=== PATIENT | female | born 1930 | race Caucasian/White ===

== ENCOUNTER 2016-12-08 18:35 | Inpatient (IN) | payer MEDICARE, OTHER ==
[2016-12-08 19:10] LABS: BASOPHIL % 0.3 % (0.0-0.4); Eosinophil % 1.9 % (0.00-5.0); Granulocytes % 66.4 % (36.0-66.0); Lymphocytes % 23.4 % (24.0-44.0); Mean Cell Volume 92.3 fl (78-100); Mean Platelet Volume 9.3 fl (6-9.5); Platelet Count 272 K/mm3 (150-450); Red Blood Count 4.39 M/mm3 (4.1-5.4); White Blood Count 7.5 K/mm3 (4.0-10.5)
--- NOTE | 2016-12-08 19:10 | ERPHSYRPT ---
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 REPORTEDLY PT HAD A CVA LAST YEAR FOR WHICH SHE HAD A 5 DAYS HOSPITAL STAY. Allergies/Adverse Reactions: ampicillin [Ampicillin] Allergy (Severe, Verified 12/08/16 18:51) Swelling Home Medications: Aspirin EC 81 mg [Ecotrin 81 mg] 81 mg PO DAILY 12/29/12 [History] Carvedilol 3.125 mg [Coreg 3.125 MG] 3.125 mg PO DAILY 12/29/12 [History] Apixaban [Eliquis] 2.5 mg PO BID 12/08/16 [History] Digoxin 0.125 mg Tablet [Lanoxin 0.125MG TABLET] 0.125 mg PO DAILY [History] Furosemide 40 mg [Lasix 40 MG] 40 mg PO DAILY 12/08/16 [History] Potassium Chloride 8 meq PO DAILY 12/08/16 [History] Sacubitril/Valsartan [Entresto 24 mg-26 mg Tablet] 1 each PO BID 12/08/16 [ History] Hx Tetanus, Diphtheria Vaccination/Date Given: No Hx Influenza Vaccination/Date Given: Yes (2011) Hx Pneumococcal Vaccination/Date Given: Yes (2011) Immunizations Up to Date: Yes - Review of Systems Constitutional: No Fever Ears, Nose, & Throat: Other (H.O.H.) Respiratory: No Dyspnea Cardiac: No Chest Pain Abdominal/Gastrointestinal: No Vomiting Neurological: Gait Changes (DIFFICULTY WITH AMBULATION), Speech Changes ( DIFFICULT ARTICULATION), Other (CONFUSION) Endocrine: No Excessive Sweating All Other Systems: Reviewed and Negative - Past Medical History Pertinent Past Medical History: Yes Neurological History: Stroke ENT History: No Pertinent History Cardiac History: No Pertinent History Respiratory History: COPD Endocrine Medical History: No Pertinent History Musculoskeletal History: No Pertinent History GI Medical History: No Pertinent History History: No Pertinent History Psycho-Social History: No Pertinent History Female Reproductive Disorders: No Pertinent History Other Medical History: shingles - Past Surgical History Past Surgical History: Yes Neuro Surgical History: No Pertinent History Cardiac: No Pertinent History Respiratory: No Pertinent History Gastrointestinal: No Pertinent History Genitourinary: No Pertinent History Musculoskeletal: No Pertinent History Female Surgical History: No Pertinent History Other Surgical History: tonsilectomy - Social History Smoking Status: Current every day smoker How long have you smoked: 60 yrs Exposure to second hand smoke: Yes Drug Use: none Patient Lives Alone: No - Female History Hx Now: No - Nursing Vital Signs Nursing Vital Signs: Initial Vital Signs Temperature 98.9 F 12/08/16 18:37 Pulse Rate 100 H 12/08/16 18:37 Respiratory Rate 18 12/08/16 18:37 Blood Pressure 145/64 12/08/16 18:37 O2 Sat by Pulse Oximetry 96 12/08/16 18:37 Pain Scale Pain Intensity 0 - Physical Exam General Appearance: alert Eye Exam: PERRL/EOMI Ears, Nose, Throat Exam: TMs normal, pharynx normal, dry mucous membranes, other (H.O.H.) Neck Exam: normal inspection Respiratory Exam: lungs clear Cardiovascular Exam: irregular Gastrointestinal/Abdomen Exam: soft, normal bowel sounds, No tenderness Back Exam: other (LEVOSCOLIOSIS; KYPHOSIS.) Extremity Exam: normal inspection, normal range of motion, No pedal edema Neurologic Exam: alert, cooperative, sensation nml, No oriented x 3 (ORIENTED TO PERSON ONLY.), No motor deficits, No slurred speech Skin Exam: warm, dry SpO2 Interpretation: normal SpO2: 96 Oxygen Delivery: Room Air - Course Nursing assessment & vital signs reviewed: Yes EKG Interpreted by Me: RATE (94), A-fib, Non-specific ST Changes, Other ( INDETERMINATE AXIS; INTRAVENTRICULAR CONDUCTION DELAY.) - Radiology Exams Chest X-ray Interpretation: Interpreted by me, No Pneumonia - CT Exams Head CT Interpretation: Discussed w/radiologist (COMPARED TO 05/06/15: NEW 3.5 X 4.0 CM FOCUS OF CORTICAL/SUBCORTICAL HYPOATTENUATION LEFT PARIETAL LOBE PROBABLE ACUTE ISCHEMIA. NEW SUBACUTE TO CHRONIC APPEARING RIGHT CEREBELLAR ISCHEMIA. NO BLEED OR MASS EFFECT. STABLE ATROPHY & DEGENERATIVE MICROISCHEMIA.) Ordered Tests: Active Orders 24 hr Category Date Time Status Chain Saw Operator STAT Care 12/08/16 19:04 Active EKG-ER Only STAT Care 12/08/16 19:02 Active IV Insertion STAT Care 12/08/16 18:55 Active Oxygen-ED Only NASAL CANNULA 2 lpm Care 12/08/16 19:02 Active Pulse Oximetry (ED) STAT Care 12/08/16 19:02 Active CHEST 1 VIEW (PORTABLE) Stat Exams 12/08/16 19:03 Taken HEAD WITHOUT CONTRAST [CT] Stat Exams 12/08/16 19:04 Taken CBC W DIFF Stat Lab 12/08/16 19:00 Completed CMP Stat Lab 12/08/16 19:00 Completed DIGOXIN Urgent Lab 12/08/16 19:00 Completed MAGNESIUM Stat Lab 12/08/16 19:00 Completed TROPONIN Q3H Lab 12/08/16 19:00 Completed TROPONIN Q3H Lab 12/08/16 22:15 Ordered TROPONIN Q3H Lab 12/09/16 01:15 Ordered TROPONIN Q3H Lab 12/09/16 04:15 Ordered TROPONIN Q3H Lab 12/09/16 07:15 Ordered UA W/ MICROSCOPIC Stat Lab 12/08/16 19:35 Completed Medication Summary Generic Name Dose Route Start Last Admin Trade Name Freq PRN Reason Stop Dose Admin Sodium Chloride 1,000 mls @ 100 mls/hr 12/08/16 19:15 12/08/16 19:38 Sodium Chloride 0.9% 1000 Ml IV 01/07/17 19:14 100 mls/hr .Q10H SHANTAL Administration Sodium Chloride 1,000 mls @ 999 mls/hr 12/08/16 19:36 12/08/16 19:40 Sodium Chloride 0.9% 1000 Ml IV 12/08/16 20:36 999 mls/hr .Q1H1M STA Administration Lab/Rad Data: Laboratory Result Diagrams 12/08/16 19:00 12/08/16 19:00 Laboratory Results 12/08/16 12/08/16 12/08/16 Range/Units 19:35 19:00 19:00 WBC (4.0-10.5) K/mm3 RBC (4.1-5.4) M/mm3 Hgb (12.0-16.0) gm/dl Hct (35-47) % MCV (78-100) fl MCH (26-32) pg MCHC (32-36) g/dl RDW (11.5-14.0) % Plt Count (150-450) K/mm3 MPV (6-9.5) fl Gran % (36.0-66.0) % Lymphocytes % (24.0-44.0) % Monocytes % (0.0-12.0) % Eosinophils % (0.00-5.0) % Basophils % (0.0-0.4) % Basophils # (0-0.4) Sodium 134 L (136-145) mEq/L Potassium 4.5 (3.5-5.1) mEq/L Chloride 99 (98-107) mEq/L Carbon Dioxide 27.7 (21-32) mEq/L Anion Gap 12.1 (5-15) MEQ/L BUN 25 H (9-20) mg/dL Creatinine 0.85 (0.55-1.30) mg/dl Estimated GFR > 60 ML/MIN Glucose 140 H (70-110) MG/DL Calcium 10.5 H (8.5-10.1) mg/dL Magnesium 1.9 (1.8-2.4) mg/dL Total Bilirubin 0.60 (0.2-1.0) mg/dL AST 39 H (15-37) U/L ALT 30 (12-78) U/L Alkaline Phosphatase 90 (46-116) U/L Troponin I < 0.017 (0.000-0.056) ng/ml Serum Total Protein 6.9 (6.4-8.2) gm/dL Albumin 3.8 (3.4-5.0) g/dL Ur Collection Type CLEAN CATCH Urine Color YELLOW (YELLOW) Urine Appearance CLEAR (CLEAR) Urine pH 6.5 (5-6) Ur Specific [place] 1.015 (1.005-1.025) Urine Protein NEGATIVE (Negative) Urine Ketones NEGATIVE (NEGATIVE) Urine Blood 250 (0-5) Yoan/ul Urine Nitrite NEGATIVE (NEGATIVE) Urine Bilirubin NEGATIVE (NEGATIVE) Urine Urobilinogen NORMAL (0-1) mg/dL Ur Leukocyte Esterase NEGATIVE (NEGATIVE) Urine Microscopic RBC 2-5 (0-2) /HPF Urine Microscopic WBC 0-2 (0-5) /HPF Ur Epithelial Cells FEW (FEW) /HPF Urine Bacteria RARE (NEGATIVE) /HPF Urine Culture Reflexed NO (NO) Urine Glucose NEGATIVE (NEGATIVE) mg/dL Digoxin 0.51 (0.5-1.5) ng/ml Specimen Received 12/08/16 1935 12/08/16 Range/Units 19:00 WBC 7.5 (4.0-10.5) K/mm3 RBC 4.39 (4.1-5.4) M/mm3 Hgb 13.6 (12.0-16.0) gm/dl Hct 40.5 (35-47) % MCV 92.3 (78-100) fl MCH 31.0 (26-32) pg MCHC 33.6 (32-36) g/dl RDW 15.0 H (11.5-14.0) % Plt Count 272 (150-450) K/mm3 MPV 9.3 (6-9.5) fl Gran % 66.4 H (36.0-66.0) % Lymphocytes % 23.4 L (24.0-44.0) % Monocytes % 8.0 (0.0-12.0) % Eosinophils % 1.9 (0.00-5.0) % Basophils % 0.3 (0.0-0.4) % Basophils # 0.02 (0-0.4) Sodium (136-145) mEq/L Potassium (3.5-5.1) mEq/L Chloride (98-107) mEq/L Carbon Dioxide (21-32) mEq/L Anion Gap (5-15) MEQ/L BUN (9-20) mg/dL Creatinine (0.55-1.30) mg/dl Estimated GFR ML/MIN Glucose (70-110) MG/DL Calcium (8.5-10.1) mg/dL Magnesium (1.8-2.4) mg/dL Total Bilirubin (0.2-1.0) mg/dL AST (15-37) U/L ALT (12-78) U/L Alkaline Phosphatase (46-116) U/L Troponin I (0.000-0.056) ng/ml Serum Total Protein (6.4-8.2) gm/dL Albumin (3.4-5.0) g/dL Ur Collection Type Urine Color (YELLOW) Urine Appearance (CLEAR) Urine pH (5-6) Ur Specific [place] (1.005-1.025) Urine Protein (Negative) Urine Ketones (NEGATIVE) Urine Blood (0-5) Yoan/ul Urine Nitrite (NEGATIVE) Urine Bilirubin (NEGATIVE) Urine Urobilinogen (0-1) mg/dL Ur Leukocyte Esterase (NEGATIVE) Urine Microscopic RBC (0-2) /HPF Urine Microscopic WBC (0-5) /HPF Ur Epithelial Cells (FEW) /HPF Urine Bacteria (NEGATIVE) /HPF Urine Culture Reflexed (NO) Urine Glucose (NEGATIVE) mg/dL Digoxin (0.5-1.5) ng/ml Specimen Received - Progress Discussed with : Dave ( - 2005) - Departure Time of Disposition: 20:07 Departure Disposition: Observation Clinical Impression: CVA, MILD DEHYDRATION, COPD Condition: Stable Critical Care Time: No Referrals: JANELL GUILLEN [Primary Care Provider] -
[2016-12-08] MEDS ORDERED: Sodium Chloride 0.9% 1000 ML 1,000 ML IV SCH (19:15)
[2016-12-08 19:27] LABS: ALBUMIN 3.8 g/dL (3.4-5.0); ALKALINE PHOSPHATASE 90 U/L (46-116); ANION GAP 12.1 MEQ/L (5-15); BLOOD UREA NITROGEN 25 mg/dL (9-20); CHLORIDE 99 mEq/L (98-107); Carbon Dioxide 27.7 mEq/L (21-32); Glucose 140 MG/DL (70-110); MAGNESIUM 1.9 mg/dL (1.8-2.4); Potassium 4.5 mEq/L (3.5-5.1); SGOT/AST 39 U/L (15-37); SGPT/ALT 30 U/L (12-78); SODIUM 134 mEq/L (136-145); Total Protein 6.9 gm/dL (6.4-8.2)
[2016-12-08] MEDS ORDERED: Sodium Chloride 0.9% 1000 ML 1,000 ML ONE (19:32)
[2016-12-08] MEDS ORDERED: Sodium Chloride 0.9% 1000 ML 1,000 ML IV STA (19:36)
[2016-12-08 19:37] LABS: TROPONIN < 0.017 ng/ml (0.000-0.056)
[2016-12-08 19:55] LABS: Collection Type CLEAN CATCH; Glucose NEGATIVE (NEGATIVE); Leukocyte Esterase NEGATIVE (NEGATIVE)
[2016-12-08 19:56] LABS: ADD URINE CULTURE? NO (NO); Bacteria RARE /HPF (NEGATIVE); Bilirubin NEGATIVE (NEGATIVE); Blood 250 Ery/ul (0-5); COMPLETE URINE MICROSCOPIC? YES; Epithelial Cells FEW /HPF (FEW); WBC 0-2 /HPF (0-5)
[2016-12-08] MEDS ORDERED: Zofran 4 MG/2 ML VIAL IV PRN (21:14)
[2016-12-08] MEDS ORDERED: Phenergan 25 MG INJ IV PRN (21:14)
[2016-12-08] MEDS ORDERED: TYLENOL 325 MG PO PRN (21:14)
[2016-12-08] MEDS: Sodium Chloride 0.9% 1000 ML 1,000 ML IV SCH (22:16)
[2016-12-09 04:41] LABS: BASOPHIL % 0.4 % (0.0-0.4); Eosinophil % 2.6 % (0.00-5.0); Granulocytes % 56.6 % (36.0-66.0); Lymphocytes % 31.9 % (24.0-44.0); Mean Cell Volume 93.1 fl (78-100); Mean Corpuscular Hemoglobin 30.9 pg (26-32); Mean Platelet Volume 8.7 fl (6-9.5); Monocytes % 8.5 % (0.0-12.0); Platelet Count 205 K/mm3 (150-450); Red Blood Count 3.91 M/mm3 (4.1-5.4)
[2016-12-09 05:15] LABS: ALKALINE PHOSPHATASE 74 U/L (46-116); ANION GAP 10.2 MEQ/L (5-15); CHLORIDE 105 mEq/L (98-107); Carbon Dioxide 26.8 mEq/L (21-32); Glucose 82 MG/DL (70-110); Potassium 3.8 mEq/L (3.5-5.1); SGOT/AST 40 U/L (15-37); SGPT/ALT 25 U/L (12-78); SODIUM 138 mEq/L (136-145); Total Protein 5.5 gm/dL (6.4-8.2)
[2016-12-09 06:15] LABS: BLOOD UREA NITROGEN 24 mg/dL (9-20)
--- NOTE | 2016-12-09 08:39 | XRAY ---
Indication: Confusion. Multiple contiguous axial images obtained through the head without contrast. Comparison: May 06, 2015. In the left posterior parietal lobe, there is now a 3.5 x 4.0 cm wedge-shaped focus of cortical/subcortical hypoattenuation favoring acute ischemia. There is also new small focus of subacute to chronic appearing right cerebellar infarct. No acute intracranial hemorrhage, mass effect, or hydrocephalus. Elsewhere there is stable global atrophy and moderate periventricular degenerative micro-ischemia bilaterally. Bony calvarium intact. Visualized paranasal sinuses and mastoid air cells are clear. Impression: 1. New left parietal lobe evolving ischemia. Also new finding for subacute to chronic appearing right cerebellar infarct. No acute hemorrhage or mass effect. 2. Stable atrophy and degenerative micro-ischemia. CT DI 61.05
--- NOTE | 2016-12-09 08:45 | XRAY ---
Indication: Confusion. Comparison: December 29, 2012. Portable chest remains hyperinflated and clear. Heart is borderline enlarged. Vascularity normal. Bony thorax intact again with mild osteopenia, degenerative changes, and double curvature scoliosis. Impression: Stable nonacute hyperinflated chest with chronic features.
[2016-12-09] MEDS ORDERED: MEDICATION INTERVENTION MC PRN (08:53)
[2016-12-09] MEDS ORDERED: FLUZONE HIGH-DOSE 2017-18 SYR IM ONE (10:00)
[2016-12-09] MEDS ORDERED: NON-FORMULARY ITEM (Potassium Chloride [Potassium Chloride] 8 MEQ) PO SCH (10:00)
[2016-12-09] MEDS ORDERED: Lanoxin 0.125MG TABLET PO SCH (10:00)
[2016-12-09] MEDS ORDERED: NON-FORMULARY ITEM (Sacubitril/Valsartan [Entresto 24 Mg-26 Mg Tablet] 1 EACH) PO SCH (10:00)
[2016-12-09] MEDS: Sodium Chloride 0.9% 1000 ML 1,000 ML IV SCH (10:25)
[2016-12-09] MEDS: ELIQUIS PO SCH ×2 (10:25→21:30)
[2016-12-09] MEDS: Klor Con 10 MEQ PO SCH (10:26)
[2016-12-09] MEDS: Lasix 40 MG PO SCH (10:27)
[2016-12-09] MEDS: ECOTRIN 81 MG PO SCH (10:28)
[2016-12-09] MEDS: Coreg 3.125 MG PO SCH (10:28)
--- NOTE | 2016-12-09 11:15 | PCM.HP ---
History of Present Illness - Chief Complaint Chief Complaint: CVA, APHASIA History of Present Illness: is a 86 year old female pt of mine from [facility] who was brought to ER for disorientation. She was found on CT to have a new appearing CVA, no bleed, no mass effect. she is in the room alone and is still disoriented; knows she has had a CVA, but cannot tell her last name, the location, or the date. She is able to ambulate quite well. - Review of Systems All Other Systems: Unable due to condition (disoriented, no family member present) Medications & Allergies Home Medications: Home Medication List Aspirin EC 81 mg [Ecotrin 81 mg] 81 mg PO DAILY 12/29/12 [History Confirmed 12/08/16] Carvedilol 3.125 mg [Coreg 3.125 MG] 3.125 mg PO DAILY 12/29/12 [History Confirmed 12/08/16] Apixaban [Eliquis] 2.5 mg PO BID 12/08/16 [History Confirmed 12/08/16] Digoxin 0.125 mg Tablet [Lanoxin 0.125MG TABLET] 0.125 mg PO DAILY [History Confirmed 12/08/16] Furosemide 40 mg [Lasix 40 MG] 40 mg PO DAILY 12/08/16 [History Confirmed 12/08/16] Potassium Chloride 8 meq PO DAILY 12/08/16 [History Confirmed 12/08/16] Sacubitril/Valsartan [Entresto 24 mg-26 mg Tablet] 1 each PO BID 12/08/16 [ History Confirmed 12/08/16] Allergies/Adverse Reactions: Allergies Allergy/AdvReac Type Severity Reaction Status Date / Time ampicillin [Ampicillin] Allergy Severe Swelling Verified 12/08/16 18:51 - Past Medical History Past Medical History: Yes Neurological History: Stroke ENT History: No Pertinent History Cardiac History: No Pertinent History Respiratory History: COPD Endocrine Medical History: No Pertinent History Musculoskelatal History: No Pertinent History GI Medical History: No Pertinent History History: No Pertinent History Pyscho-Social History: No Pertinent History Reproductive Disorders: No Pertinent History Comment: shingles - Female History Are you now?: No - Past Surgical History Past Surgical History: Yes Neuro Surgical History: No Pertinent History Cardiac History: No Pertinent History Respiratory Surgery: No Pertinent History GI Surgical History: No Pertinent History Genitourinary Surgical Hx: No Pertinent History Musculskeletal Surgical Hx: No Pertinent History Female Surgical History: No Pertinent History Other Surgical History: tonsilectomy, Corneal transplant date unkown - Social History Smoking Status: Former smoker How long have you smoked: 60 yrs Exposure to second hand smoke: Yes Alcohol: None Drug Use: none - Physical Exam Vital Signs: Vital Signs - 24 hr Temp Pulse Resp BP Pulse Ox 12/09/16 10:27 72 12/09/16 08:00 20 12/09/16 07:00 97.9 F 72 20 118/58 94 L 12/09/16 04:00 98.2 F 70 18 119/62 91 L 12/09/16 00:00 98.1 F 14 12/08/16 21:27 99.2 F 88 16 133/65 95 12/08/16 20:07 96 12/08/16 19:52 79 22 112/56 95 12/08/16 19:24 94 L 12/08/16 18:37 98.9 F 100 H 18 145/64 96 General Appearance: no apparent distress, alert, other (extremely RED DEVIL) Neurologic Exam: cooperative, scrap 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-XII nml as tested (aside from very decreased CN VIII), disoriented (pleasant) Eye Exam: eyes nml inspection, other (small pupils, sluggishly reactive) Ears, Nose, Throat Exam: pharynx normal, moist mucous membranes, No pharyngeal erythema Neck Exam: normal inspection, non-tender, supple, No lymphadenopathy Respiratory Exam: normal breath sounds, lungs clear, No crackles/rales, No rhonchi, No wheezing Cardiovascular Exam: normal heart sounds, irregular, No murmur Gastrointestinal/Abdomen Exam: soft, normal bowel sounds, distention, No tenderness, No mass, No guarding, No rebound Back Exam: normal inspection Extremity Exam: No pedal edema, No swelling Skin Exam: normal color, warm, dry Assessment/Plan (1) CVA (cerebral vascular accident) Current Visit: Yes Status: Acute Qualifiers: CVA mechanism: occlusion Precerebral and cerebral artery: middle cerebral artery Laterality of affected vessel: left Qualified Code(s): I63.512 - Cerebral infarction due to unspecified occlusion or stenosis of left middle cerebral artery Assessment & Plan: L parietal, new lesion on CT head. Will order echo and carotid dopplers. Will consult Dr. Medina. Code(s): I63.9 - CEREBRAL INFARCTION, UNSPECIFIED (2) Atrial fibrillation Current Visit: Yes Status: Acute Assessment & Plan: Sees Dr. Medina. She has been on Eliquis, will check with family to see if she' s been taking it regularly. Started here. Code(s): I48.91 - UNSPECIFIED ATRIAL FIBRILLATION (3) Disorientated Current Visit: Yes Status: Acute Assessment & Plan: I would expect her orientation to improve over the next few days. No infection noted. Code(s): R41.0 - DISORIENTATION, UNSPECIFIED (4) COPD (chronic obstructive pulmonary disease) Current Visit: Yes Status: Acute Qualifiers: COPD type: emphysema Emphysema type: panlobular Qualified Code(s): J43.1 - Panlobular emphysema Assessment & Plan: Sees [facility] for visits few times a year for COPD exacerbation. Currently lung sounds are benign.
--- NOTE | 2016-12-10 07:45 | CONS ---
CONSULT DATE: 12/09/2016 BRIEF HISTORY: This is an 86 year-old female who was seen following transient ischemic attack symptoms. The patient was admitted last night after she was noted to have some speech impediment. She did not have any noted motor deficits. At the time of this examination she seems to be back to her baseline. She is somewhat hard of hearing but she appears to be coherent, oriented to place and person. She had a CT scan of the head that showed a left parietal lobe ischemia. The patient has previous history of transient ischemic attack. She has an underlying atrial fibrillation for which she was anticoagulated with Eliquis. She has had no bleeding problems. The patient is also known to have cardiomyopathy and appears to be well compensated. She denies any chest pains at this time. HOME MEDICATIONS: Aspirin, carvedilol, digoxin, Furosemide, potassium, Entresto. 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 Her previous MRI showed small vessel disease. RESPIRATORY: Occasional cough. No hemoptysis. GI: No history of peptic ulcer or colon disorder. : Negative for dysuria. PERIPHERAL VASCULAR: No history of DVT or claudication. PAST SURGICAL HISTORY: Tonsillectomy. SOCIAL HISTORY: She lives by herself but under the constant watch of her relatives. PHYSICAL EXAMINATION: Her blood pressure is 104/74 with heart rate of 80 in atrial fibrillation, respirations about 18. GENERAL: The patient is an elderly female who is alert who is somewhat hard of hearing with intelligible speech. HEENT: Unremarkable. NECK: The external jugulars are prominent. CHEST: The breath sounds are harsh with some rhonchi. CARDIAC: Heart tones are variable. The rhythm is atrial fibrillation. There is a grade 2/6 mid systolic murmur. ABDOMEN: Soft with normal bowel sounds. EXTREMITIES: No significant edema. Decreased distal pulses. LAB DATA AND DIAGNOSTIC TESTS: The EKG shows atrial fibrillation with left bundle branch block. IMPRESSION: In essence the patient had: 1) Transient ischemic attack symptoms mostly related probably to thromboembolic event. Her neurological examination at this time is unremarkable. Her speech is more intelligible. She has no motor deficits. I will continue with anticoagulation, Eliquis at the same dose. 2) Permanent atrial fibrillation goal of treatment is heart rate control and continue anticoagulation. 3) Cardiomyopathy, continue with the Entresto. Her Lanoxin will be adjusted.
--- NOTE | 2016-12-10 07:52 | ECHO ---
Transthoracic echocardiographic examination and color Doppler was done on 12/09/2016. INDICATION: Transient ischemic attack, atrial fibrillation, history of cardiomyopathy. IMPRESSION: 1) GLOBAL LEFT VENTRICULAR HYPOKINESIA. EJECTION FRACTION AROUND 30%. 2) MODERATE TO SEVERE MITRAL REGURGITATION. 3) MODERATE TRICUSPID REGURGITATION. RIGHT VENTRICULAR SYSTOLIC PRESSURE OF 42 MM OF MERCURY. 4) TRACE AORTIC REGURGITATION. 5) MILD PULMONIC INSUFFICIENCY. 6) LEFT VENTRICULAR HYPERTROPHY. 7) LEFT ATRIAL ENLARGEMENT. 8) MILDLY DILATED RIGHT-SIDED CHAMBERS. 9) LEFT VENTRICULAR DIASTOLIC DYSFUNCTION. The left ventricle is visualized and demonstrated global type of hypokinesia. Ejection fraction around 30%. There is concentric left ventricular hypertrophy. The mitral valve is thickened and there is some low flow characteristic. It has associated moderate to severe mitral regurgitation. Left atrium is enlarged. The aortic valve is sclerotic. There is trace aortic regurgitation. The right side chambers are mildly dilated. There is moderate tricuspid regurgitation. The right ventricular systolic pressure of 42 mm of [place]. Tissue Doppler study of the lateral mitral annulus suggests left ventricular diastolic dysfunction.
[2016-12-10] MEDS: ELIQUIS PO SCH ×2 (08:42→20:52)
[2016-12-10] MEDS: Lasix 40 MG PO SCH (08:43)
[2016-12-10] MEDS: Coreg 3.125 MG PO SCH (08:43)
[2016-12-10] MEDS: Klor Con 10 MEQ PO SCH (08:43)
[2016-12-10] MEDS: ECOTRIN 81 MG PO SCH (08:43)
--- NOTE | 2016-12-10 08:50 | PCM.NOTE ---
Date and Time: 12/10/16 0843 Subjective Assessment: Pt thinks she's in a [facility], has no idea the date. Knows she is Justa, thought hard about her last name and could not remember it on her own but agreed with me when I provided it (yesterday she disagreed when provided with her 's last name). Denies any abdominal pain. Objective Exam General Appearance: no apparent distress, alert Neurologic Exam: cooperative, disoriented Skin Exam: normal color, warm, dry Respiratory Exam: normal breath sounds, lungs clear, No crackles/rales, No rhonchi, No wheezing Cardiovascular Exam: irregular, other (distant heart sounds), No murmur Gastrointestinal/Abdomen Exam: soft, tenderness (RUQ, epigastrum), No guarding, No rebound OBJECTIVE DATA Vital Signs: Vital Signs - 24 hr Temp Pulse Resp BP Pulse Ox 12/10/16 08:00 16 12/10/16 07:38 98.5 F 98 H 16 128/66 96 12/10/16 07:13 96 12/10/16 04:00 98.1 F 106 H 20 102/53 96 12/10/16 00:00 97.6 F 87 18 162/86 97 12/09/16 20:00 98.1 F 115 H 18 153/97 95 12/09/16 18:02 97 12/09/16 16:09 98 F 80 20 150/88 95 12/09/16 16:00 20 12/09/16 12:11 97.6 F 86 18 119/70 97 12/09/16 12:00 18 12/09/16 10:27 72 Oxygen-Last 24 hours O2 Percentage 2 Liters = 28% O2 Percentage 2 Liters = 28% Oxygen Flowrate (L/min)-RT 2 Pain Assessment - Last Documented Pain Scale Used 0-10 Pain Scale Intake and Output: Intake & Output 12/07/16 12/08/16 12/09/16 12/10/16 11:59 11:59 11:59 11:59 Intake Total 120 2763 Output Total 300 1000 Balance -180 1763 Weight 43.59 kg Lab Results: Lab Results-Last 24 Hours 12/09/16 12/09/16 Range/Units 11:47 11:47 Troponin I 0.024 (0.000-0.056) ng/ml Digoxin 2.00 H* (0.5-1.5) ng/ml Radiology Exams: Radiology Procedures Category Date Time Status ECHO W/2D AND DOPPLER [US] Routine Exams 12/09/16 Draft Assessment/Plan (1) CVA (cerebral vascular accident) Current Visit: Yes Status: Acute Qualifiers: CVA mechanism: occlusion Precerebral and cerebral artery: middle cerebral artery Laterality of affected vessel: left Qualified Code(s): I63.512 - Cerebral infarction due to unspecified occlusion or stenosis of left middle cerebral artery Assessment & Plan: Seen by Dr. Medina yesterday, will continue current anticoagulation. She has no motor deficits, only the disorientation as below. Code(s): I63.9 - CEREBRAL INFARCTION, UNSPECIFIED (2) Atrial fibrillation Current Visit: Yes Status: Acute Assessment & Plan: Goal is rate control, see Dr. Medina's note. Code(s): I48.91 - UNSPECIFIED ATRIAL FIBRILLATION (3) Disorientated Current Visit: Yes Status: Acute Assessment & Plan: Likely due to CVA but digitalis toxicity could be contributing. Will check another dig level today; if wnl will restart at half her previous dose per Dr. Medina. Code(s): R41.0 - DISORIENTATION, UNSPECIFIED (4) COPD (chronic obstructive pulmonary disease) Current Visit: Yes Status: Acute Qualifiers: COPD type: emphysema Emphysema type: panlobular Qualified Code(s): J43.1 - Panlobular emphysema Assessment & Plan: Stable, on O2. (5) CHF (congestive heart failure) Current Visit: Yes Status: Chronic Qualifiers: Congestive heart failure type: systolic Congestive heart failure chronicity : chronic Qualified Code(s): I50.22 - Chronic systolic (congestive) heart failure Assessment & Plan: EF 30% on echo yesterday. Code(s): I50.9 - HEART FAILURE, UNSPECIFIED
[2016-12-10] MEDS: Lanoxin 0.125MG TABLET PO SCH (10:35)
[2016-12-10] MEDS: Sodium Chloride 0.9% 1000 ML 1,000 ML IV SCH (16:53)
[2016-12-10] MEDS ORDERED: Lasix 20 MG/2 ML IV ONE (21:00)
[2016-12-11] MEDS ORDERED: Lasix 40 MG/4 ML IV ONE (04:34)
[2016-12-11 05:35] LABS: Mean Cell Volume 96.4 fl (78-100); Mean Corpuscular Hemoglobin 31.7 pg (26-32); Mean Platelet Volume 9.4 fl (6-9.5); Platelet Count 230 K/mm3 (150-450); Red Blood Count 4.42 M/mm3 (4.1-5.4); Red Cell Distribution Width 15.5 % (11.5-14.0); White Blood Count 10.2 K/mm3 (4.0-10.5)
[2016-12-11] MEDS ORDERED: CARDIZEM DRIP 100 MG/100 ML D5W 100 ML IV PRN (06:03)
[2016-12-11] MEDS: Sodium Chloride 0.9% 500 ML 500 ML IV SCH (06:25)
[2016-12-11 07:04] LABS: ANION GAP 16.4 MEQ/L (5-15); Carbon Dioxide 25.4 mEq/L (21-32); Potassium 4.4 mEq/L (3.5-5.1)
[2016-12-11] MEDS ORDERED: PROVENTIL 2.5 MG/3 ML NEB IH PRN (08:08)
[2016-12-11] MEDS: Lanoxin 0.125MG TABLET PO SCH (08:58)
[2016-12-11] MEDS: ECOTRIN 81 MG PO SCH (08:59)
[2016-12-11] MEDS: Coreg 3.125 MG PO SCH (08:59)
[2016-12-11] MEDS: Klor Con 10 MEQ PO SCH (08:59)
[2016-12-11] MEDS: Lasix 40 MG PO SCH (08:59)
[2016-12-11] MEDS: solu-MEDROL 125 MG IV SCH ×2 (09:00→17:11)
[2016-12-11] MEDS: ELIQUIS PO SCH ×2 (10:25→21:19)
[2016-12-11] MEDS: Lopressor 25MG Tab PO SCH ×2 (16:14→21:19)
--- NOTE | 2016-12-11 20:49 | XRAY ---
Indication: Short of breath. Comparison: December 07, 2016. Portable chest demonstrates new moderate bibasilar infiltrates/atelectasis/effusions and right apical infiltrate/atelectasis. Findings obscure cardiac margin. Bony thorax intact again with osteopenia and degenerative changes. Comment: Preliminary interpretation was made by [facility]. No discrepancy.
[2016-12-11] MEDS ORDERED: Lasix 20 MG/2 ML IV ONE (21:00)
[2016-12-12] MEDS: solu-MEDROL 125 MG IV SCH ×3 (02:11→17:21)
[2016-12-12 04:14] LABS: A-aADO2 584; ARTERIAL BLD GAS O2 SATURATION 98.4 % (95-100); ARTERIAL BLOOD GAS BASE EXCESS -1.7 (-2.0-2.0); ARTERIAL BLOOD GAS FIO2 100 %; ARTERIAL BLOOD GAS PO2 82 mmHg (75-100); ARTERIAL BLOOD GAS pH 7.39 (7.35-7.45)
[2016-12-12 04:15] LABS: ALLEN TEST OK? YES
[2016-12-12 05:15] LABS: Granulocytes % 91.7 % (36.0-66.0); Lymphocytes % 4.3 % (24.0-44.0); Mean Cell Volume 96.3 fl (78-100); Mean Corpuscular Hemoglobin 31.5 pg (26-32); Mean Platelet Volume 9.7 fl (6-9.5); Platelet Count 211 K/mm3 (150-450); Red Blood Count 4.32 M/mm3 (4.1-5.4); Red Cell Distribution Width 15.7 % (11.5-14.0); White Blood Count 15.2 K/mm3 (4.0-10.5)
[2016-12-12 05:29] LABS: ALBUMIN 3.1 g/dL (3.4-5.0); ANION GAP 16.6 MEQ/L (5-15); BILIRUBIN,TOTAL 0.8 mg/dL (0.2-1.0); Carbon Dioxide 23.1 mEq/L (21-32); Total Protein 6.9 gm/dL (6.4-8.2)
[2016-12-12] MEDS ORDERED: Lopressor 25MG Tab ONE (05:30)
[2016-12-12] MEDS ORDERED: Lopressor 25MG Tab PO ONE (05:31)
[2016-12-12] MEDS: Sodium Chloride 0.9% 500 ML 500 ML IV SCH (05:58)
[2016-12-12] MEDS: Lanoxin 0.125MG TABLET PO SCH (09:35)
[2016-12-12] MEDS: Klor Con 10 MEQ PO SCH (09:35)
[2016-12-12] MEDS: ECOTRIN 81 MG PO SCH (09:36)
[2016-12-12] MEDS: ELIQUIS PO SCH ×2 (09:37→22:08)
[2016-12-12] MEDS ORDERED: Levofloxacin 500MG/100ML D5W 500 MG/100 ML BAG IV SCH (10:00)
[2016-12-12] MEDS ORDERED: Lopressor 25MG Tab PO SCH (10:00)
[2016-12-12] MEDS ORDERED: Lopressor 50 MG PO ONE (13:55)
[2016-12-12] MEDS ORDERED: xanAX 0.5 MG PO PRN (21:20)
[2016-12-12] MEDS: Lopressor 50 MG PO SCH (22:08)
[2016-12-13] MEDS: solu-MEDROL 125 MG IV SCH ×3 (00:26→16:57)
[2016-12-13 06:15] LABS: ANION GAP 15.6 MEQ/L (5-15); BILIRUBIN,TOTAL 0.8 mg/dL (0.2-1.0); Carbon Dioxide 23.8 mEq/L (21-32); Mean Cell Volume 96.8 fl (78-100); Mean Corpuscular Hemoglobin 30.7 pg (26-32); Mean Platelet Volume 10.4 fl (6-9.5); Platelet Count 226 K/mm3 (150-450); Red Blood Count 4.76 M/mm3 (4.1-5.4); Red Cell Distribution Width 15.9 % (11.5-14.0); Total Protein 6.5 gm/dL (6.4-8.2); White Blood Count 11.6 K/mm3 (4.0-10.5)
[2016-12-13 06:18] LABS: Potassium 6.2 mEq/L (3.5-5.1)
[2016-12-13 06:38] LABS: BAND 1 % (0.0-2.0); Total Cells Counted 100
[2016-12-13 06:39] LABS: ANISOCYTOSIS 1+; Platelet Estimate NORMAL (NORMAL); Poikilocytosis 2+
--- NOTE | 2016-12-13 08:58 | PCM.NOTE ---
Date and Time: 12/13/16851 Subjective Assessment: Pt deteriorated over the weekend with CHF and decreased mental status. She was in afib with RVR and initially on cardizem drip; Dr. Medina started her on lopressor and she is currently off the cardizem drip with HR in the 100s-130s at times. Overnight she was restless, did sleep for several hours after being dosed with xanax but now restless again. She rouses to voice, tries to say my name, but does not follow commands. Her potassium was elevated this morning to 6.2. - Review of Systems Constitutional: No Fever Objective Exam General Appearance: no apparent distress Neurologic Exam: disoriented, uncooperative Skin Exam: normal color, warm, dry Neck Exam: normal inspection Respiratory Exam: diminished breath sounds, No crackles/rales, No rhonchi, No wheezing Cardiovascular Exam: tachycardia, irregular Gastrointestinal/Abdomen Exam: soft, tenderness (RUQ), No distention, No mass, No rebound Extremity Exam: No pedal edema, No swelling OBJECTIVE DATA Vital Signs: Vital Signs - 24 hr Temp Pulse Resp BP BP Pulse Ox 12/13/16 08:00 96.9 F 124 H 34 H 137/84 100 12/13/16 07:26 126 H 26 H 94 L 12/13/16 04:00 97.1 F 107 H 26 H 126/73 95 12/13/16 00:00 98 F 122 H 28 H 114/80 97 12/12/16 22:00 136 H 27 H 146/80 98 12/12/16 20:00 97.7 F 121 H 36 H 139/64 96 12/12/16 19:31 126 H 39 H 97 12/12/16 16:00 97.8 F 121 H 33 H 131/77 97 12/12/16 12:00 98 F 111 H 32 H 131/79 99 12/12/16 09:35 104 H 138/85 Oxygen-Last 24 hours O2 Percentage 80% O2 Percentage 90% O2 Percentage 90% O2 Percentage 90% O2 Percentage 90% O2 Percentage 90% O2 Percentage 100% Oxygen Flowrate (L/min)-RT 35 Oxygen Flowrate (L/min)-RT 35 Oxygen Flowrate (L/min)-RT 35 Oxygen Flowrate (L/min)-RT 35 Pain Assessment - Last Documented Pain Scale Used FLACC Intake and Output: Intake & Output 12/10/16 12/11/16 12/12/16 12/13/16 11:59 11:59 11:59 11:59 Intake Total 2763 462 1347 180 Output Total 1000 1300 1100 Balance 1763 -838 247 180 Weight 43.59 kg 41.277 kg 40.778 kg 41.2 kg Lab Results: Lab Results-Last 24 Hours 12/13/16 12/13/16 12/13/16 Range/Units 05:35 05:35 05:35 WBC 11.6 H (4.0-10.5) K/mm3 RBC 4.76 (4.1-5.4) M/mm3 Hgb 14.6 (12.0-16.0) gm/dl Hct 46.1 (35-47) % MCV 96.8 (78-100) fl MCH 30.7 (26-32) pg MCHC 31.7 L (32-36) g/dl RDW 15.9 H (11.5-14.0) % Plt Count 226 (150-450) K/mm3 MPV 10.4 H (6-9.5) fl Segmented Neutrophils 97 H (36.0-66.0) % Band Neutrophils 1 (0.0-2.0) % Lymphocytes (Manual) 1 L (24-44) % Monocytes (Manual) 1 (0.0-12.0) % Differential Comment ABNORMAL Platelet Estimate NORMAL (NORMAL) Poikilocytosis 2+ Anisocytosis 1+ Sodium 142 (136-145) mEq/L Potassium 6.2 H* (3.5-5.1) mEq/L Chloride 109 H (98-107) mEq/L Carbon Dioxide 23.8 (21-32) mEq/L Anion Gap 15.6 H (5-15) MEQ/L BUN 71 H (9-20) mg/dL Creatinine 1.34 H (0.55-1.30) mg/dl Estimated GFR 40 ML/MIN Glucose 158 H (70-110) MG/DL Calcium 10.1 (8.5-10.1) mg/dL Total Bilirubin 0.80 (0.2-1.0) mg/dL AST 86 H (15-37) U/L ALT 108 H (12-78) U/L Alkaline Phosphatase 107 (46-116) U/L Serum Total Protein 6.5 (6.4-8.2) gm/dL Albumin 3.0 L (3.4-5.0) g/dL Digoxin 1.05 (0.5-1.5) ng/ml Radiology Exams: Radiology Procedures Category Date Time Status CHEST 1 VIEW (PORTABLE) Urgent Exams 12/11/16 08:02 Completed Multi-Disciplinary Progress Notes: Multi-Disciplinary Progress Notes 12/12/16 14:14 Respiratory Note by Malina Teixeira 1300 DEC FIO2 TO 90% Initialized on 12/12/16 14:14 - END OF NOTE 12/12/16 12:34 Respiratory Note by Malina Teixeira katie hater changed. spo2 98% on 35lpm and 100%. will start to wean as tolerated Initialized on 12/12/16 12:34 - END OF NOTE Assessment/Plan (1) Hyperkalemia Current Visit: Yes Status: Acute Assessment & Plan: Pt not taking po today. Will stop her K+ po. Will give some IVF gently, along with lasix, in the hope of slowly decreasing her potassium. EKG was done and there were no peaked T waves so I think a slow decrease is reasonable. Code(s): E87.5 - HYPERKALEMIA (2) CHF (congestive heart failure) Current Visit: Yes Status: Acute Qualifiers: Congestive heart failure type: systolic Congestive heart failure chronicity : acute on chronic Qualified Code(s): I50.23 - Acute on chronic systolic ( congestive) heart failure Assessment & Plan: Worse over the weekend with her afib with RVR. Will add some lasix again today. Code(s): I50.9 - HEART FAILURE, UNSPECIFIED (3) Atrial fibrillation Current Visit: Yes Status: Acute Qualifiers: Atrial fibrillation type: persistent Qualified Code(s): I48.1 - Persistent atrial fibrillation Assessment & Plan: Her digoxin was decreased due to dig toxicity; level this morning is fine. She is on lopressor as well. 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 She did have some sundowning over the weekend. Code(s): R41.0 - DISORIENTATION, UNSPECIFIED (6) COPD (chronic obstructive pulmonary disease) Current Visit: Yes Status: Acute Qualifiers: COPD type: emphysema Emphysema type: panlobular Qualified Code(s): J43.1 - Panlobular emphysema (7) Abdominal pain Current Visit: Yes Status: Acute Qualifiers: Abdominal location: right upper quadrant Qualified Code(s): R10.11 - Right upper quadrant pain Assessment & Plan: Her tenderness seems marked. I will discuss with her granddaughter, Angie Maxwell, and will order CT abd/pelvis if OK with her (no contrast due to renal function). Code(s): R10.9 - UNSPECIFIED ABDOMINAL PAIN (8) Chronic renal disease Current Visit: Yes Status: Acute Assessment & Plan: worsened with her recent diuresis. Code(s): N18.9 - CHRONIC KIDNEY DISEASE, UNSPECIFIED
[2016-12-13] MEDS: Lasix 40 MG/4 ML IV SCH ×2 (10:41→21:41)
[2016-12-13] MEDS: Sodium Chloride 0.9% 1000 ML 1,000 ML IV SCH ×2 (10:43→10:48)
[2016-12-13] MEDS: Lanoxin 0.125MG TABLET PO SCH (10:44)
[2016-12-13] MEDS: Lopressor 50 MG PO SCH ×2 (10:49→21:42)
[2016-12-13] MEDS: ELIQUIS PO SCH ×2 (10:49→21:41)
[2016-12-13] MEDS: Levaquin 250MG/50ML D5W 250 MG/50 ML BAG IV SCH (10:49)
[2016-12-13] MEDS: ECOTRIN 81 MG PO SCH (10:52)
--- NOTE | 2016-12-13 11:10 | XRAY ---
Indication: Abdominal pain. Unresponsive. Multiple contiguous axial images obtained through the abdomen and pelvis without contrast as ordered. Comparison: None Patient's arms and multiple anterior monitoring leads produces beam artifact limiting the study. Lung bases demonstrates large bilateral effusions with compressive atelectasis and cardiomegaly. Small hiatal hernia. Noncontrasted stomach and bowel loops appear nonobstructed. Scattered sigmoid diverticulosis. There is small abdominal/pelvic ascites and mild anasarca. No free air. Scattered calcified hepatic/splenic granulomas. 1 cm dense right upper pole exophytic mass probable viscous/complex cyst. 4.5 cm left renal cyst. Remaining liver, gallbladder, pancreas, spleen, adrenal glands, kidneys, bladder, and uterus appear unremarkable for noncontrast exam. Heavy aortoiliac calcifications without AAA. 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 Impression: 1. Limited exam due to beam artifact as detailed. 2. Cardiomegaly with large bilateral effusions/atelectasis. Rule out CHF. Small abdomen/pelvis ascites and anasarca may be related. 3. 4.5 cm left renal cyst. 1 cm right upper pole dense mass possibly viscous/complex cyst. Ultrasound may yield further information. 4. Small hiatal hernia and sigmoid diverticulosis. 5. Osteopenia, degenerative spondylosis, and levorotoscoliosis. CT DI 10.60
[2016-12-13] MEDS ORDERED: Lopressor 50 MG PO ONE (13:41)
[2016-12-14] MEDS: solu-MEDROL 125 MG IV SCH ×2 (01:28→09:06)
[2016-12-14] MEDS: Sodium Chloride 0.9% 1000 ML 1,000 ML IV SCH (01:28)
[2016-12-14] MEDS: MORPHINE SULFATE 4 MG INJ IV PRN ×2 (05:30→09:08)
[2016-12-14 05:47] LABS: Mean Cell Volume 93.8 fl (78-100); Mean Platelet Volume 10.4 fl (6-9.5); Platelet Count 261 K/mm3 (150-450); Red Blood Count 5.44 M/mm3 (4.1-5.4); Red Cell Distribution Width 15.5 % (11.5-14.0); White Blood Count 10.5 K/mm3 (4.0-10.5)
[2016-12-14 05:57] LABS: Mean Corpuscular Hemoglobin 30.6 pg (26-32)
[2016-12-14 06:16] LABS: BLOOD UREA NITROGEN 91 mg/dL (9-20); CHLORIDE 108 mEq/L (98-107); Carbon Dioxide 24.7 mEq/L (21-32); Glucose 153 MG/DL (70-110); Potassium 5.3 mEq/L (3.5-5.1); SODIUM 141 mEq/L (136-145)
--- NOTE | 2016-12-14 08:46 | PCM.NOTE ---
Date and Time: 12/14/16840 Subjective Assessment: Pt with some desaturation on high flow O2 at 40 L, RT notes she does breathe through the mouth. Restless. Not responding well this morning. - Review of Systems All Other Systems: Unable due to condition Objective Exam General Appearance: other (eyes slightly open; does rouse somewhat to loud voice /touch. May offer slight squeeze of hand with request. She is lying on th ebed wiht her bed clohtes disheveled.) Skin Exam: normal color, warm, dry Respiratory Exam: diminished breath sounds, No crackles/rales, No rhonchi, No wheezing Cardiovascular Exam: tachycardia, irregular Gastrointestinal/Abdomen Exam: soft, tenderness (generalized), No distention, No mass Extremity Exam: No pedal edema, No swelling Back Exam: normal inspection OBJECTIVE DATA Vital Signs: Vital Signs - 24 hr Temp Pulse Resp BP Pulse Ox 12/14/16 08:00 96.6 F 133 H 12 92/72 96 12/14/16 04:00 97.5 F 110 H 29 H 135/92 95 12/14/16 03:51 117 H 22 94 L 12/14/16 00:00 97.0 F 109 H 19 143/68 94 L 12/13/16 23:44 103 H 20 95 12/13/16 19:57 97.0 F 100 H 27 H 117/64 92 L 12/13/16 19:53 100 H 12/13/16 19:25 104 H 18 94 L 12/13/16 16:00 96.6 F 92 H 21 122/69 98 12/13/16 12:00 110 H 12/13/16 11:52 97.5 F 110 H 31 H 116/77 97 12/13/16 11:09 96 12/13/16 11:07 99 12/13/16 10:44 123 H Oxygen-Last 24 hours O2 Percentage 60% O2 Percentage 35% O2 Percentage 35% O2 Percentage 50% O2 Percentage 50% O2 Percentage 50% Oxygen Flowrate (L/min)-RT 35 Oxygen Flowrate (L/min)-RT 35 Pain Assessment - Last Documented Pain Scale Used FLACC Intake and Output: Intake & Output 12/11/16 12/12/16 12/13/16 12/14/16 11:59 11:59 11:59 11:59 Intake Total 462 1347 180 883 Output Total 1300 1100 0 300 Balance -838 247 180 583 Weight 41.277 kg 40.778 kg 41.2 kg 38.283 kg Lab Results: Lab Results-Last 24 Hours 12/13/16 12/13/16 12/13/16 Range/Units 08:15 11:00 17:05 WBC (4.0-10.5) K/mm3 RBC (4.1-5.4) M/mm3 Hgb (12.0-16.0) gm/dl Hct (35-47) % MCV (78-100) fl MCH (26-32) pg MCHC (32-36) g/dl RDW (11.5-14.0) % Plt Count (150-450) K/mm3 MPV (6-9.5) fl Sodium (136-145) mEq/L Potassium 6.0 H* 5.5 H (3.5-5.1) mEq/L Chloride (98-107) mEq/L Carbon Dioxide (21-32) mEq/L Anion Gap (5-15) MEQ/L BUN (9-20) mg/dL Creatinine (0.55-1.30) mg/dl Estimated GFR ML/MIN Glucose (70-110) MG/DL Calcium (8.5-10.1) mg/dL NT-Pro-B Natriuret Pep > 05080 H (0-450) pg/ml 12/14/16 12/14/16 Range/Units 05:10 05:10 WBC 10.5 (4.0-10.5) K/mm3 RBC 5.44 H (4.1-5.4) M/mm3 Hgb 16.7 H (12.0-16.0) gm/dl Hct 51.0 H (35-47) % MCV 93.8 (78-100) fl MCH 30.6 (26-32) pg MCHC 32.7 (32-36) g/dl RDW 15.5 H (11.5-14.0) % Plt Count 261 (150-450) K/mm3 MPV 10.4 H (6-9.5) fl Sodium 141 (136-145) mEq/L Potassium 5.3 H (3.5-5.1) mEq/L Chloride 108 H (98-107) mEq/L Carbon Dioxide 24.7 (21-32) mEq/L Anion Gap 14.0 (5-15) MEQ/L BUN 91 H (9-20) mg/dL Creatinine 1.53 H (0.55-1.30) mg/dl Estimated GFR 34 ML/MIN Glucose 153 H (70-110) MG/DL Calcium 9.5 (8.5-10.1) mg/dL NT-Pro-B Natriuret Pep > 37736 H (0-450) pg/ml Radiology Exams: Radiology Procedures Category Date Time Status ABDOMEN AND PELVIS W/0 CONTRAS [CT] Stat Exams 12/13/16 09:17 Completed Assessment/Plan (1) End of life care Current Visit: Yes Status: Acute Assessment & Plan: RN notes family agrees with end of life care. I will speak wiht granddaughter again today (Angie donahue). I did let her know yesterday that at any rate pt will not improve over her function the first 2-3 days here in the hospital ( post CVA, she was consistently disoriented). I would say at this point prognosis is very poor, agree with supportive care only, will continue IV fluids and antibiotics unless family decides differently, but can discontinue lab work. Code(s): Z51.5 - ENCOUNTER FOR PALLIATIVE CARE (2) Hyperkalemia Current Visit: Yes Status: Acute Assessment & Plan: improved Code(s): E87.5 - HYPERKALEMIA (3) CHF (congestive heart failure) Current Visit: Yes Status: Acute Qualifiers: Congestive heart failure type: systolic Congestive heart failure chronicity : acute on chronic Qualified Code(s): I50.23 - Acute on chronic systolic ( congestive) heart failure Assessment & Plan: she does have fluid on CXR and on CT abd there is ascites. However I don't think the pro-BNP is an accurate measure (will be elevated due to her age, habitus, and renal function). She is getting diuretics as well as IV fluid at 70cc/hr. Code(s): I50.9 - HEART FAILURE, UNSPECIFIED (4) Atrial fibrillation Current Visit: Yes Status: Acute Qualifiers: Atrial fibrillation type: persistent Qualified Code(s): I48.1 - Persistent atrial fibrillation Assessment & Plan: her BP is too low to increase her lopressor. Rate around 120 currently. 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 Code(s): I63.9 - CEREBRAL INFARCTION, UNSPECIFIED (6) COPD (chronic obstructive pulmonary disease) Current Visit: Yes Status: Acute Qualifiers: COPD type: emphysema Emphysema type: panlobular Qualified Code(s): J43.1 - Panlobular emphysema (7) Abdominal pain Current Visit: Yes Status: Acute Qualifiers: Abdominal location: right upper quadrant Qualified Code(s): R10.11 - Right upper quadrant pain Assessment & Plan: CT abd/pelvis was non acute (done wihtout contrast as pt has low egfr) Code(s): R10.9 - UNSPECIFIED ABDOMINAL PAIN (8) Chronic renal disease Current Visit: Yes Status: Acute Assessment & Plan: Fluid and diuresis as above. Code(s): N18.9 - CHRONIC KIDNEY DISEASE, UNSPECIFIED
[2016-12-14] MEDS: Levaquin 250MG/50ML D5W 250 MG/50 ML BAG IV SCH (09:10)
[2016-12-14] MEDS: ECOTRIN 81 MG PO SCH (09:13)
[2016-12-14] MEDS: Lanoxin 0.125MG TABLET PO SCH (09:13)
[2016-12-14] MEDS: ELIQUIS PO SCH (09:13)
[2016-12-14] MEDS: Lopressor 50 MG PO SCH (09:14)
[2016-12-14] MEDS: Lasix 40 MG/4 ML IV SCH (09:14)
[2016-12-14 10:11] VITALS: BP 94/45; PULSE 102; O2SAT 85
--- NOTE | 2016-12-23 08:55 | DS ---
ADMISSION DIAGNOSES: 1) CVA with dehydration. 2) Chronic obstructive pulmonary disease. FINAL DIAGNOSES/CAUSE OF : CEREBROVASCULAR ACCIDENT. HOSPITAL COURSE: This is an 86 year-old female patient of mine from the [facility] who came to the emergency room with symptoms of a CVA confirmed on CT scan. She was admitted to the floor and was stable for the first several days although she was completely disoriented the entire time which is not her baseline. After several days she took a turn for the worse with decreased mental status and congestive heart failure symptoms. She had atrial fibrillation with rapid ventricular rate and was on a Cardizem drip initially and then Dr. Medina changed her to Lopressor. She never became more oriented and continued to decline. The family advised that it was fine to do comfort care only as that was consistent with the patient's wishes. She on 12/14/2016.
== END 2016-12-14 12:10 | disposition expired | DRG 65 ==
LOC: ED 18:35 → MED SURG 21:09 → OBSVTOIN 12-09 08:36 → ICU 12-11 05:45 → MED SURG 12-14 10:31
PROVIDERS: ADMIT Family Medicine; ATTEND Family Medicine
DX: I63.512 Cerebral infarction due to unspecified occlusion or stenosis of left middle cerebral artery (principal); I50.22 Chronic systolic (congestive) heart failure; I42.9 Cardiomyopathy, unspecified; E86.0 Dehydration; J44.9 Chronic obstructive pulmonary disease, unspecified; I48.91 Unspecified atrial fibrillation; R41.0 Disorientation, unspecified; N18.9 Chronic kidney disease, unspecified; Z87.891 Personal history of nicotine dependence; E87.5 Hyperkalemia; Z79.899 Other long term (current) drug therapy
CPT/HCPCS: 36000; 36415; 36600; 70450; 71010; 74176; 80048; 80053; 80162; 81000; 82375; 82803; 83735; 83880; 84132; 84484; 85025; 85027; 87086; 87631; 93005; 93041; 93268; 93306; 94640; 94760; 96360; 99285; G0008; G0378; J1940; J1956; J2270; J2405; J2550; J2930; 90662; A9270-GY